=== PATIENT | female | born 1935 | race Caucasian/White ===

== ENCOUNTER 2018-11-08 10:52 | Inpatient (IN) ==
--- NOTE | 2018-11-08 11:28 | PROVIDER DOCUMENTATION ---
This chart was entered by Yuni Hutchinson Scribe, acting as scribe for Dayron Kumar CRNP. HPI-Respiratory General - General Chief Complaint: Shortness of Breath Stated Complaint: SOB,HIGH BP Time Seen by Provider: 11/08/18 11:05 Source: patient Allergies/Adverse Reactions: Patient Allergies Allergy/AdvReac Type Severity Reaction Status Date / Time lincomycin [From Lincocin] Allergy DIARRHEA Verified 11/08/18 11:22 Penicillins Allergy HIVES Verified 11/08/18 11:22 Sulfa (Sulfonamide Allergy DIARRHEA Verified 11/08/18 11:22 Antibiotics) - History of Present Illness-Resp Nature of Presenting Problem: 83 y/o female presents to ED with SOB onset suddenly this morning. Pt reports she has a pacemaker and has had multiple heart surgeries. Pt is alert and oriented. Quality of Pain: reports: none Severity in ED: reports: moderate Onset/Duration: reports: abrupt, this morning Timing: reports: still present Context: reports: other Exposure: reports: unknown cause Cough Quality/Degree: reports: no cough Episode Frequency: no prior episodes Current Respiratory Medication Therapy: Initiated see nurses note Modifying Factors: improves with: nothing Associated Symptoms: reports: shortness of breath, short of breath Similar Symptoms Previously?: No Recently seen or treated by another doctor?: No Review of Systems - Adult - REVIEW OF SYSTEMS - ADULT Constitutional: denies: chills, fever Eyes: reports: no symptoms reported Ears, Nose, Mouth & Throat: reports: no symptoms reported Cardiovascular: denies: chest pain, palpitations Respiratory: reports: shortness of breath. denies: cough Gastrointestinal: denies: abdominal pain, diarrhea, nausea, vomiting Genitourinary: reports: no symptoms reported Musculoskeletal: denies: back pain, joint pain Integumentary: reports: no symptoms reported Neurological: denies: dizziness/vertigo, seizure Psychiatric: reports: no symptoms reported Endocrine: reports: no symptoms reported Hematologic/Lymphatic: reports: no symptoms reported Allergic/Immunologic: reports: no symptoms reported All Other Systems: Reviewed and Negative Past History - Adult - PAST MEDICAL HISTORY-ADULT Review of Records: reports: Old Records Reviewed, Nursing Assessment Review, Medications Reviewed Major Childhood Illnesses: reports: denies history Cardiovascular: reports: CAD, pacemaker - PRIOR SURGERIES/PROCEDURES Surgical/Procedure History: reports: pacemaker, other (multiple heart surgeries) - IMMUNIZATION STATUS Childhood Immunizations: See Nurse Assessment Flu Vaccine: See Nurse Assessment - FAMILY HISTORY Family History: reviewed, not pertinent - SOCIAL HISTORY Smoking: non-smoker Substance Use: none/never Alcohol Use Frequency: never Living Situation: family Physical Exam-General - PHYSICAL EXAM-ADULT Initial Vital Signs Reviewed: Yes - CONSTITUTIONAL General Appearance: appears well, alert, no apparent distress - EYES Eyes: PERRL/EOMI, pink conjunctivae - HEAD, EARS, NOSE, MOUTH & THROAT HENMT: normocephalic/atraumatic, moist mucous membranes, normal ENT inspection - NECK Neck: non-tender, full range of motion - RESPIRATORY Respiratory: chest non-tender, lungs clear, normal breath sounds - CARDIOVASCULAR Cardiovascular: normal peripheral pulses, regular rate, rhythm - GASTROINTESTINAL (ABDOMEN) Abdominal Exam: normal bowel sounds, non tender, soft - MUSCULOSKELETAL Back Exam: normal inspection, no CVA tenderness Extremity: normal range of motion, non-tender, normal gait, swelling (mild edema of bilateral lower extremities) - SKIN Integumentary: normal color, warm/dry - NEUROLOGIC Neurologic: grossly normal - PSYCHIATRIC Psych/Mental Status: normal mood/affect, normal thought content, normal thought process - HEART Score HEART Score: History: Slightly Suspicious HEART Score: ECG: Normal HEART Score: Age: > or = 65 Years HEART Score: Risk Factors for Atherosclerotic Disease: 1 or 2 Risk Factors HEART Score: Troponin: < or = Normal Limit Total HEART Score:: 3 Progress - PLAN OF CARE/RESULTS Progress/Plan/Lab Results: Vital Signs - 8 hr 11/08/18 10:58 Temperature 97.7 F Pulse Rate 72 Respiratory Rate 16 Blood Pressure 185/77 O2 Sat by Pulse Oximetry 96 Laboratory Results - last 24 hr 11/08/18 11/08/18 11/08/18 11:29 11:29 11:29 WBC 6.84 RBC 4.13 L Hgb 13.2 Hct 40.4 MCV 97.8 MCH 32.0 H MCHC 32.7 L RDW Std Deviation 13.5 Plt Count 277 MPV 10.0 Immature Gran % (Auto) 0.0 Neut % (Auto) 53.9 Lymph % (Auto) 33.9 Schuyler % (Auto) 8.0 Eos % (Auto) 3.5 Baso % (Auto) 0.7 Immature Gran # (Auto) 0.00 Neut # (Auto) 3.68 Lymph # (Auto) 2.32 [place]uyler # (Auto) 0.55 Eos # (Auto) 0.24 Baso # (Auto) 0.05 PT INR PTT (Actin FS) Sodium 144 Potassium 3.9 Chloride 102 Carbon Dioxide 28 Anion Gap 14 BUN 10 Creatinine 0.9 Estimated GFR/1.73 m2 60 BUN/Creatinine Ratio 11 Glucose 114 H Calculated Osmolality 287 Calcium 9.2 Total Bilirubin 0.82 AST 64 H ALT 25 Alkaline Phosphatase 149 H Creatine Kinase 43 Troponin T [id number] Pept 4405 H Total Protein 6.4 Albumin 3.6 Globulin 2.8 Albumin/Globulin Ratio 1.3 Urine Source Urine Color Urine Turbidity Urine pH Ur Specific [place] Urine Protein Ur Glucose (Stick) Ur Ketones (Stick) Urine Blood Urine Nitrite Urine Bilirubin Urobilinogen Dipstick Urine Leukocytes Urine WBC (Auto) Urine RBC (Auto) U Epithel Cells (Auto) Urine Bacteria (Auto) 11/08/18 11/08/18 11/08/18 11:29 11:29 12:00 WBC RBC Hgb Hct MCV MCH MCHC RDW Std Deviation Plt Count MPV Immature Gran % (Auto) Neut % (Auto) Lymph % (Auto) [place] % (Auto) Eos % (Auto) Baso % (Auto) Immature Gran # (Auto) Neut # (Auto) Lymph # (Auto) [place] # (Auto) Eos # (Auto) Baso # (Auto) PT 22.3 H INR 1.81 PTT (Actin FS) 35.5 Sodium Potassium Chloride Carbon Dioxide Anion Gap BUN Creatinine Estimated GFR/1.73 m2 BUN/Creatinine Ratio Glucose Calculated Osmolality Calcium Total Bilirubin AST ALT Alkaline Phosphatase Creatine Kinase Troponin T < 0.010 Hyo-E-Ajgsxutqsmh Pept Total Protein Albumin Globulin Albumin/Globulin Ratio Urine Source CLEAN CATCH Urine Color YELLOW Urine Turbidity CLEAR Urine pH 7.0 Ur Specific [place] 1.010 Urine Protein TRACE A Ur Glucose (Stick) NEGATIVE Ur Ketones (Stick) NEGATIVE Urine Blood NEGATIVE Urine Nitrite NEGATIVE Urine Bilirubin NEGATIVE Urobilinogen Dipstick NORMAL Urine Leukocytes NEGATIVE Urine WBC (Auto) <10 Urine RBC (Auto) <10 U Epithel Cells (Auto) <10 Urine Bacteria (Auto) NEGATIVE Orders Category Date Time Status Oxygen Therapy- ED Nursing DIRECTED Care 11/08/18 11:15 Active Saline Loc NOW Care 11/08/18 11:13 Active CHEST-PORTABLE [RAD] Stat Exams 11/08/18 11:14 Completed CBC WITH ELECTRONIC DIFF [HEME] Stat Lab 11/08/18 11:29 Completed CK PROFILE [SP CHEM] Stat Lab 11/08/18 11:29 Completed COMPREHENSIVE METABOLIC PANEL [CHEM] Stat Lab 11/08/18 11:29 Completed PRO B-NATRIURETIC PEPTIDE Stat Lab 11/08/18 11:29 Completed PROTIME WITH INR [COAG] Stat Lab 11/08/18 11:29 Completed PTT [COAG] Stat Lab 11/08/18 11:29 Completed TROPONIN T Stat Lab 11/08/18 11:29 Completed URINALYSIS W/POSS RFLX CULT [URINALYSIS] Stat Lab 11/08/18 12:00 Completed Furosemide [Lasix] Med 11/08/18 11:57 Discontinued 20 mg IV NOW ONE Result Diagrams: 11/08/18 11:29 11/08/18 11:29 - EKG 1 Time of EKG reading by physician:: 10:58 EKG Read and Signed by:: Niraj Enrique EKG Interpretation (*Must complete 3 of following elements*): Abnormal Rate: 64 Rhythm: Ventricular-paced [place]: normal QRS: normal [place] Interval: normal ST Wave: normal - XRAY 1 XRAY Study: Chest ([facility] [address], [address], [place] [address] Department of Imaging Patient: JACQUIE EGAN Date: 11/08/18#: [id number] : 1935DM Status: REG [facility]#: [id number] Age/Sex: 83/FRoom/Bed: Loc: ED Ordering Physician: Dayron Kumar Family Physician: Taiwo Henderson MD Reason for Procedure: SOB Signed EXAM: CHEST- PORTABLE INDICATION: SOB TECHNIQUE: One view COMPARISON: None. FINDINGS: There is pulmonary venous congestion and pulmonary edema bilaterally with a central and basilar predominance. There is suggestion of at least a small left effusion. There is adjacent atelectasis and/or infiltrate at the left lung base. The heart is enlarged. Median sternotomy wires and what appears to be a prosthetic heart valve are noted. A left-sided pacemaker is noted. IMPRESSION: Cardiomegaly with pulmonary edema and a left effusion as described. Electronically signed by Mati Ware 11/08/2018 11:42 AM 11/08/18 1142 Interpreting Physician: Mati Ware MD Dictated Date/Time: 11/08/18 1140 cc: Dayron Kumar; Taiwo Henderson MD) XRAY Interpretation: See note - CONSULTS/PCP/HOSPITALIST Notification #1 *Consult/PCP/Hospitalist*: Dr. Henderson Time Discussed: 12:30 Reason/Comments: Admit Consult Disposition: other (Doesn't think she is his patient but he will call back in a few minutes.) #2 Consult: michelle Ladd Time Discussed: 12:53 Reason/Comments: Admission Consult Disposition: Admit Departure - Departure Date of Disposition Decision: 11/08/18 Time of Disposition Decision: 12:31 DIAGNOSIS: Shortness of breath Pulmonary edema Qualifiers: Chronicity: acute Qualified Code(s): J81.0 - Acute pulmonary edema CHF (congestive heart failure) Qualifiers: Heart failure type: unspecified Heart failure chronicity: unspecified Qualified Code(s): I50.9 - Heart failure, unspecified Disposition: ADMITTED INPATIENT 09 Certified Medical Emergency: Emergent Condition: Stable Referrals and Follow-Ups: None,PCP [NON-STAFF PROVIDER] - - Critical Care Note This patient required my direct & personal management of CC.: No Attestation - Physician/ LO Attestation Patient care was provided by Advanced Practice Provider:: Yes Advanced Practice Provider:: Dayron Kumar Advanced Practice Provider documentation review:: The Mid-level provider documentation, treatment plan and medical decision making was reviewed by the physician who agrees with all treatment and medical decision making by the P. The physician spent face to face time with patient:: No Advanced Practice Provider documentation review:: Supervising physician onsite and consulted in the evaluation and care of this patient. The physician did not have a face to face encounter with the patient. This chart was documented by the indicated scribe, (Yuni Hutchinson, [place]) and accurately reflects the services I performed and decisions made by me, Dayron Kumar CRNP, as attested by the provider's signature.
--- NOTE | 2018-11-08 11:45 | Diag Imaging Result Doc PS360 ---
EXAM: CHEST-PORTABLE INDICATION: SOB TECHNIQUE: One view COMPARISON: None. FINDINGS: There is pulmonary venous congestion and pulmonary edema bilaterally with a central and basilar predominance. There is suggestion of at least a small left effusion. There is adjacent atelectasis and/or infiltrate at the left lung base. The heart is enlarged. Median sternotomy wires and what appears to be a prosthetic heart valve are noted. A left-sided pacemaker is noted. IMPRESSION: Cardiomegaly with pulmonary edema and a left effusion as described. Electronically signed by Mati Ware 11/08/2018 11:42 AM
[2018-11-08 11:53] LABS: BASO# 0.05 X1000 (0.0-0.2); BASO% 0.7 % (0.0-0.8); EOS# 0.24 X1000 (0.0-0.7); EOS% 3.5 % (0.0-10.0); HEMATOCRIT 40.4 % (37.0-47.0); HEMOGLOBIN 13.2 g/dL (12.0-16.0); LYMPH# 2.32 X1000 (1.2-3.4); LYMPH% 33.9 % (20.5-51.1); MCHC 32.7 g/dL (33-37); MCV 97.8 FL (81-99); MONO# 0.55 X1000 (0.11-0.59); NEUT# 3.68 X1000 (1.4-6.5); NEUT% 53.9 % (42.2-75.2); PLT 277 X1000 (130-400); RBC 4.13 XMIL (4.2-5.4); RDW 13.5 % (11.5-14.5); WBC 6.84 X1000 (4.8-10.8)
[2018-11-08 11:57] LABS: INR 1.81; PROTIME 22.3 Seconds (11.0-16.0)
[2018-11-08] MEDS ORDERED: LASIX IV ONE (11:57)
[2018-11-08 11:58] LABS: PTT 35.5 Seconds (22.3-41.8)
[2018-11-08 12:00] LABS: ALB/GLOB RATIO 1.3; ALBUMIN 3.6 g/dL (3.5-5.0); CALCIUM 9.2 mg/dL (8.8-10.2); CREATININE 0.9 mg/dL (0.5-0.9); POTASSIUM 3.9 mmol/L (3.5-5.1); TOTAL BILIRUBIN 0.82 mg/dL (0.20-1.00); TOTAL PROTEIN 6.4 g/dL (6.3-8.3)
[2018-11-08 12:05] LABS: URINE SOURCE CLEAN CATCH
[2018-11-08 12:09] LABS: BILIRUBIN URINE NEGATIVE (NEGATIVE); BLOOD URINE NEGATIVE (NEGATIVE); COLOR YELLOW; GLUCOSE URINE NEGATIVE (NEGATIVE); KETONE URINE NEGATIVE (NEGATIVE); LEUKOCYTES URINE NEGATIVE (NEGATIVE); NITRITE URINE NEGATIVE (NEGATIVE); PROTEIN URINE TRACE mg/dL (NEGATIVE); TURBIDITY URINE CLEAR (CLEAR); UROBILINOGEN URINE NORMAL (NORMAL)
[2018-11-08 12:11] LABS: UR EPITHELIAL CELLS <10 /HPF (<10); URINE BACTERIA NEGATIVE /HPF; URINE RBC <10 /HPF (<10); URINE WBC <10 /HPF (<10)
--- NOTE | 2018-11-08 13:52 | HISTORY AND PHYSICAL ---
PRIMARY CARE PHYSICIAN: None. Just recently moved here from [place]. CHIEF COMPLAINT: Shortness of breath and dizziness that began this a.m. HISTORY OF PRESENTING ILLNESS: This is an 83-year-old thin, frail 98 pound female who presents to [facility] with a sudden onset of shortness of breath this morning with dizziness that progressively worsened. Has a history of congestive heart failure, hypertension, atrial fibrillation and GERD. Workup in the emergency room showed a chest x-ray with cardiomegaly with pulmonary edema and a left effusion. She had a proBNP of 4405. We do not have any other labs to compare to as she is new to this area. She was given a 1 time dose of Lasix 20 mg IV x1 in the emergency room and so we will admit her for further evaluation and treatment. PAST MEDICAL HISTORY: CHF, hypertension, atrial fibrillation and GERD. PAST SURGICAL HISTORY: Of a pacemaker, multiple heart surgeries, cholecystectomy and appendectomy. FAMILY HISTORY: Reviewed and noncontributory. SOCIAL HISTORY: She currently lives with family. Denies any tobacco, alcohol or illicit drug use. ALLERGIES: To lincomycin, penicillin and sulfa. HOME MEDICATIONS: A current list will need to be obtained, reviewed, reconciled and restarted as appropriate. We will place an order for nursing to update and confirm home medications. LABORATORY DATA: Showed a white blood cell count of 6.84, hemoglobin 13.2, hematocrit 40.4, platelets 277,000. PT and INR of 22.3 and 1.81. Sodium 144, potassium 3.9, chloride 102, CO2 28, BUN of 10, creatinine 0.9, glucose 114, creatine kinase of 43. Troponin less than 0.010 with a proBNP of 4405. Urinalysis was negative. Chest x-ray showed cardiomegaly with pulmonary edema and a left effusion as described. REVIEW OF SYSTEMS: She denied any fever, chills, blurred vision. She did have some dizziness, shortness of breath. Denied any chest pain or cough. Denied any abdominal pain, constipation, diarrhea, burning or hurting with urination. PHYSICAL EXAMINATION: On arrival she had a temperature of 97.7 degrees, a pulse of 72, respirations 16, blood pressure 185/77, saturating 96% on room air. GENERAL: This is a 83-year-old female who is lying in the bed and answers questions appropriately. HEENT: Normocephalic, atraumatic. Normal ENT inspection. Oropharynx and nares are clear. Pupils are equal, round, reactive to light and accommodation. Extraocular movements are intact. NECK: Normal inspection, normal range of motion. LUNGS: Clear to auscultation bilaterally with equal lung expansion and chest wall movement. HEART: With regular rate and rhythm. No murmurs, rubs, or gallops. She did have some mild edema to her bilateral lower extremities but it was nonpitting. ABDOMEN: Soft, nontender, nondistended. Bowel sounds are present x4 quadrants. MUSCULOSKELETAL: She has 5/5 strength x4 extremities. Her HEART score is noted to be 3. NEUROLOGICAL: The cranial nerves 2-12 appear grossly intact. ASSESSMENT: 1. An acute congestive heart failure exacerbation. 2. Hypertension history of. 3. History of atrial fibrillation. 4. Gastroesophageal reflux disease. PLAN: She will be admitted to the medical unit, placed on telemetry, O2 per protocol. We will check an echocardiogram. Place her on a healthy heart diet. SCD for DVT prophylaxis. Will do some gentle diuresis as she is thin and frail at 98 pounds so do Lasix 20 mg IV b.i.d., give her Tylenol 650 p.o. q.6 hours p.r.n. and Zofran 4 mg IV q.4 hours p.r.n. and recheck a CBC, BMP in the a.m. Further orders after seen by attending and we still need to update and confirm home medications. Dictated by JORGE Pereyra for Bill Mc MD cc: JORGE Pereyra MD Patient presenting with dyspnea. Cxr shows pulmonary edema. Probnp level is elevated. Patient will be managed as a case of Acute CHF. Dr. Mc. REA
[2018-11-08] MEDS ORDERED: TYLENOL PO PRN (14:50)
[2018-11-08] MEDS ORDERED: ZOFRAN IV PRN (14:50)
[2018-11-08] MEDS: PATIENT'S OWN MED PO SCH (20:22)
[2018-11-08] MEDS: LASIX IV SCH (20:22)
[2018-11-08] MEDS ORDERED: ZANTAC PO SCH (21:00)
[2018-11-08] MEDS ORDERED: REMERON PO SCH (21:00)
[2018-11-08] MEDS ORDERED: COUMADIN PO SCH (21:00)
[2018-11-09 07:31] LABS: BASO# 0.02 X1000 (0.0-0.2); BASO% 0.4 % (0.0-0.8); EOS# 0.22 X1000 (0.0-0.7); EOS% 4.7 % (0.0-10.0); HEMATOCRIT 35.9 % (37.0-47.0); HEMOGLOBIN 11.7 g/dL (12.0-16.0); LYMPH# 1.21 X1000 (1.2-3.4); LYMPH% 25.8 % (20.5-51.1); MCHC 32.6 g/dL (33-37); MCV 98.1 FL (81-99); MONO# 0.44 X1000 (0.11-0.59); MONO% 9.4 % (1.7-9.3); NEUT% 59.7 % (42.2-75.2); PLT 240 X1000 (130-400); RBC 3.66 XMIL (4.2-5.4); RDW 13.5 % (11.5-14.5); WBC 4.69 X1000 (4.8-10.8)
[2018-11-09 08:04] LABS: CALCIUM 8.4 mg/dL (8.8-10.2); CREATININE 0.9 mg/dL (0.5-0.9); POTASSIUM 3.1 mmol/L (3.5-5.1)
[2018-11-09] MEDS: ANTIVERT PO SCH ×3 (08:53→17:41)
[2018-11-09] MEDS: LASIX IV SCH ×2 (08:53→21:53)
[2018-11-09] MEDS ORDERED: POTASSIUM CHLORIDE 20 MEQ/SWI 20 MEQ/100 ML IVPB IV SCH (12:32)
--- NOTE | 2018-11-09 12:53 | PROGRESS NOTE ---
DATE: 11/09/2018 SUBJECTIVE: The patient is awake and resting comfortably. Not in any obvious distress. OBJECTIVE: Vital signs: Temperature 98.1 degrees, pulse of 67, respiratory rate 16, blood pressure 125/59, oxygen saturation 100%. HEENT: Atraumatic, normocephalic. Cardiovascular: S1, S2. Respiratory system: Has evidence of good air entry bilaterally. Abdomen: Soft, nontender. No masses felt. Extremities: No evidence of significant edema in the lower extremities. Central nervous system: No obvious focal deficits noted. LABORATORY DATA: WBC is 4.6, hematocrit is 35.9, with a platelet count of 240,000. Sodium is 144, potassium 3.1, chloride is 102, bicarb 25, creatinine 0.9. ASSESSMENT AND PLAN: 1. Acute congestive heart failure (diastolic versus systolic). Continue diuretics. Monitor intakes and outputs, as well as daily weights. Follow up on 2D echo of the heart. 2. History of atrial fibrillation. Heart rate is currently controlled. Continue anticoagulation. 3. Gastroesophageal reflux disease. Continue ranitidine. 4. Hypertension, stable. 5. Deep vein thrombosis prophylaxis. The patient is on warfarin. cc: Bill Mc MD MTDD
[2018-11-09] MEDS ORDERED: KLOR-CON PO ONE (13:59)
--- NOTE | 2018-11-09 16:36 | ECHO REPORT ---
ORDER DATE: 11/09/2018 2D echocardiogram ECHOCARDIOGRAPHIC MEASUREMENTS: 1. Interventricular septum 0.9. 2. Left ventricular posterior wall 0.9. 3. Diastolic diameter 4.9. 4. Left atrium 4.4. 5. Aorta 3.5. SUMMARY: 1. Aortic valve leaflets are trileaflet. 2. Pulmonic valve was normal. 3. Pacing leads were noted in the right chamber. 4. Normal left ventricular cavity size. 5. Estimated ejection fraction of 40 to 45 percent. 6. Mechanical prosthetic valve in the mitral position was stable. 7. Mitral valve area by pressure half time was 4 square cm. 1. Peak inflow velocity across the mitral valve was 1.3 m/sec with a mean gradient of 2 mmHg there was associated with mild mitral regurgitation. 2. The prosthetic valve was functioning appropriately. 3. There is moderate tricuspid regurgitation. 4. Peak velocity across the tricuspid valve was 3.3 m/sec. 5. Pulmonary artery systolic pressure of 55 mmHg. 6. There is no aortic stenosis. 7. There is trivial aortic regurgitation. 8. There is no pericardial effusion or obvious intracardiac mass or thrombus seen. cc: MD Evon Harding CRNP
[2018-11-09] MEDS ORDERED: COUMADIN PO SCH (17:00)
[2018-11-09] MEDS: REMERON PO SCH (17:41)
[2018-11-09] MEDS: ZANTAC PO SCH (17:41)
[2018-11-09 20:57] LABS: INR 1.88
[2018-11-09] MEDS: PATIENT'S OWN MED PO SCH (21:53)
[2018-11-10 07:17] LABS: BASO# 0.04 X1000 (0.0-0.2); BASO% 0.9 % (0.0-0.8); EOS# 0.37 X1000 (0.0-0.7); EOS% 7.9 % (0.0-10.0); HEMATOCRIT 36.5 % (37.0-47.0); HEMOGLOBIN 11.7 g/dL (12.0-16.0); LYMPH# 1.39 X1000 (1.2-3.4); LYMPH% 29.6 % (20.5-51.1); MCH 31.8 PG (27-31); MCHC 32.1 g/dL (33-37); MCV 99.2 FL (81-99); MONO# 0.53 X1000 (0.11-0.59); MONO% 11.3 % (1.7-9.3); MPV 10.2 FL (7.4-10.4); NEUT# 2.36 X1000 (1.4-6.5); NEUT% 50.3 % (42.2-75.2); PLT 237 X1000 (130-400); RBC 3.68 XMIL (4.2-5.4); RDW 13.4 % (11.5-14.5); WBC 4.69 X1000 (4.8-10.8)
[2018-11-10 07:36] LABS: CALCIUM 8.5 mg/dL (8.8-10.2); CREATININE 0.9 mg/dL (0.5-0.9); POTASSIUM 3.3 mmol/L (3.5-5.1)
[2018-11-10] MEDS: ANTIVERT PO SCH ×3 (09:11→16:23)
[2018-11-10] MEDS: LASIX IV SCH ×2 (09:11→20:37)
[2018-11-10] MEDS ORDERED: HEPARIN 25,000 UNITS/D5W 25,000 UNIT/250 ML IV.SOLN IV SCH ×2 (11:45→23:26)
--- NOTE | 2018-11-10 12:12 | PROGRESS NOTE ---
DATE: 11/10/2018 SUBJECTIVE: This morning Ms. Garcia referred to be feeling a whole lot better. She was sitting up in the chair with no complaints. Ms. Garcia refers that her shortness of breath has significantly improved. OBJECTIVE: Vital Signs: Blood pressure 111/51, pulse 74, respirations 16, and temperature 98 degrees. General: Ms. Garcia is an 83-year-old female. She was sitting up in the chair. She was not in any distress. HEENT: Mucosa is pink and moist. Anicteric. Acyanotic. Neck: Supple. Chest: She has good air entry bilateral, just some faint crackles in the posterior lung [place]. Cardiovascular: Regular rate and rhythm. There is positive metallic click of the mitral valve. Abdomen: Soft. Extremities: No pedal edema. [place] LEAD: Patient is awake, alert, and oriented. LABORATORY DATA: On the chest exam, there is an old sternotomy scar on the anterior chest wall. There is also a pacemaker generator on the left anterior chest wall. Chemistry is reviewed, and is unremarkable. Potassium is 3.2. The patient I's and O's, the urine output 800 was charted overnight. The echocardiogram did show an ejection fraction of 40 to 45 percent. Prosthetic valve was functioning appropriately. ASSESSMENT: 1. Congestive heart failure in acute exacerbation. Patient is currently on diuretic therapy. Echocardiogram shows ejection fraction of 40 to 45 percent. 2. History of atrial fibrillation. Currently rate controlled. 3. Status post mitral mechanical valve. Patient is on Coumadin. INR is extremely subtherapeutic so I have started the patient on heparin drip. We will give her 10 mg of Coumadin today. We will also consult cardiology. 4. Hypertension is controlled. 5. Status post pacemaker. PLAN: 1. In general, Ms. Garcia seems to be getting better. Congestive symptoms are improved. She is extremely subtherapeutic on her INR so we are going to bridge it with heparin and give her a higher dose of Coumadin today. Cardiology has been consulted. We will follow up with further recommendations from them. 2. Disposition is going to depend on the rest of the hospital course. 3. I presume in the next 24 to 48 hours, we can have Ms. Garcia discharged. cc: Gutierrez Adler MD
--- NOTE | 2018-11-10 15:12 | CARDIOLOGY CONSULTATION ---
DATE: 11/10/2018 HISTORY OF PRESENT ILLNESS: Ms. Dhara Christiansen is a 98 pound, 83-year-old, frail lady who has a [employer] mechanical mitral valve replacement in the past. Has a single chamber pacemaker, Medtronic device, is on Coumadin. Comes with complaints of having increasing shortness of breath with minimal exertion. Came to the emergency room. Was noted to have cardiomegaly with pulmonary edema and left effusion. Started on IV Lasix. She has a proBNP of 4405. She was noted to have a low sodium and was advised to increase salt intake so she admits to having increasing salt intake recently as well. She was recently seen by Dr. Marie in our office in [place]. At that time, she had been doing well. She does not complain of chest pain suggestive of angina. There are no palpitations. There is no syncope. REVIEW OF SYSTEMS: A 14-point review of systems was done. GI System: There is no history of nausea, vomiting, or diarrhea. There is no history of hematemesis or melena. Central Nervous System: No focal weakness to suggest a CVA or TIA. Genitourinary System: There is no dysuria or hematuria. PAST MEDICAL HISTORY: 1. 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 2. LV dysfunction. 3. Permanent pacemaker, Medtronic device implanted, single chamber. 4. Coumadin therapy. 5. Hypothyroidism. 6. Hypertension. 7. 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 8. In the past, had hyponatremia. HOME MEDICATIONS: 1. Aspirin 81 mg a day. 2. Metoprolol 25. 3. Lorazepam. PHYSICAL EXAMINATION: Vital Signs: Blood pressure was 180/77 when she came in. Today, blood pressure is 145/51. First and second heart sounds heard. Mechanical prosthetic sounds heard. Respiratory System: Bibasilar inspiratory crepitations. Abdomen: Soft, nontender. There was no guarding or rigidity. Bowel sounds were heard. Central Nervous System: Alert and was moving all 4 extremities. Examination of her extremities revealed mild edema. HEENT: Atraumatic, normocephalic. Pupils were equal and reacting to light. LABORATORY EXAMINATION: Reveals sodium 145, potassium 3.3, BUN 9, creatinine 0.9. ProBNP elevated at 4405. Troponin negative. Hemoglobin 11.7, hematocrit 36, platelet count 237,000. INR of 1.8. ASSESSMENT AND PLAN: 1. Ms. Dhraa Garcia is an 83-year-old lady who is frail, status post mechanical mitral valve replacement in the past, left ventricular dysfunction, hypothyroidism. 2. History of atrial fibrillation. Is admitted with increasing shortness of breath. Has congestive heart failure. Ejection fraction 40-45%, systolic heart failure. She does admit to having increasing salt intake. Regardless, would recommend continuing with the Lasix intravenously 20 mg twice daily as planned. She was on beta-blockers before. We will add Toprol-XL 25 mg twice daily to her medical regimen. 3. Given her left ventricular dysfunction, we will add Cozaar 25 mg daily. As far as her INR is concerned, it was subtherapeutic. We will give Coumadin 10 today and put her back on Coumadin 2 mg a day. 4. As far as her pacemaker is concerned, she has a [employer]tr[employer] device. She has atrial fibrillation, functioning appropriately. Given her left ventricular dysfunction, she will be followed up in our pacemaker clinic as an outpatient in [place] and she may benefit from an upgrade of her pacemaker as well. This will be done as an outpatient. 5. She has history of hypothyroidism. We will check TSH levels and treat accordingly. Thank you for the consult. We will follow hospital course. cc: Jean Marie Martin MD
[2018-11-10] MEDS: COZAAR PO SCH ×2 (16:25→16:30)
[2018-11-10] MEDS: ZANTAC PO SCH (18:50)
[2018-11-10] MEDS: REMERON PO SCH (18:51)
[2018-11-10] MEDS: PATIENT'S OWN MED PO SCH (20:36)
[2018-11-10] MEDS ORDERED: COUMADIN PO SCH ×2 (21:00)
[2018-11-11 05:52] LABS: BASO# 0.06 X1000 (0.0-0.2); BASO% 1.1 % (0.0-0.8); EOS# 0.31 X1000 (0.0-0.7); EOS% 5.7 % (0.0-10.0); HEMATOCRIT 39.5 % (37.0-47.0); HEMOGLOBIN 12.6 g/dL (12.0-16.0); LYMPH# 1.44 X1000 (1.2-3.4); LYMPH% 26.6 % (20.5-51.1); MCH 31.3 PG (27-31); MCHC 31.9 g/dL (33-37); MCV 98.3 FL (81-99); MONO# 0.57 X1000 (0.11-0.59); MONO% 10.5 % (1.7-9.3); MPV 9.9 FL (7.4-10.4); NEUT# 3.04 X1000 (1.4-6.5); NEUT% 56.1 % (42.2-75.2); PLT 262 X1000 (130-400); RBC 4.02 XMIL (4.2-5.4); RDW 13.2 % (11.5-14.5); WBC 5.42 X1000 (4.8-10.8)
[2018-11-11 06:10] LABS: INR 2.05; PROTIME 24.7 Seconds (11.0-16.0)
[2018-11-11 06:24] LABS: CALCIUM 9.4 mg/dL (8.8-10.2); MAGNESIUM 1.8 mg/dL (1.5-2.7); POTASSIUM 3.2 mmol/L (3.5-5.1)
[2018-11-11 06:43] LABS: FERRITIN 264 ng/mL (13-150)
--- NOTE | 2018-11-11 08:11 | Diag Imaging Result Doc PS360 ---
EXAM: CHEST-2 VIEWS INDICATION: chf TECHNIQUE: 2 views COMPARISON: 11/08/2018 FINDINGS: There has been significant improvement of pulmonary venous congestion and interstitial edema to near resolution since the previous study. The small left effusion and adjacent atelectasis and/or infiltrate has grossly resolved. No new consolidation is appreciated. Cardiac silhouette is stable. IMPRESSION: Interval significant improvement. Electronically signed by Mati Ware 11/11/2018 8:09 AM
[2018-11-11] MEDS: LASIX IV SCH (08:18)
[2018-11-11] MEDS: COZAAR PO SCH (08:18)
[2018-11-11] MEDS: ANTIVERT PO SCH ×2 (08:18→14:03)
[2018-11-11] MEDS ORDERED: FOLIC ACID PO SCH (09:00)
[2018-11-11] MEDS ORDERED: TOPROL XL PO SCH (09:00)
[2018-11-11 11:41] VITALS: BP 130/55
[2018-11-11] MEDS ORDERED: COUMADIN PO SCH (21:00)
--- NOTE | 2018-11-11 22:28 | DISCHARGE SUMMARY ---
ADMISSION DATE: 11/08/2018 DISCHARGE DATE: 11/11/2018 DISPOSITION: Home. FOLLOWUP: Will be with: 1. Patient's PCP, Dr. Henderson. 2. Dr. Martin. CONSULTATION DURING THIS ADMISSION: Cardiology was consulted. Patient was seen by Dr. Martin. INVASIVE PROCEDURES DONE DURING THIS ADMISSION: None. IMAGING STUDIES: Significant for: 1. A chest x-ray was done on admission which showed cardiomegaly with pulmonary edema and left pleural effusion. 2. A repeat chest x-ray shows interval significant improvement. 3. An echocardiogram did show an ejection fraction of about 40% to 45%. The prosthetic valve was functioning appropriately ADMISSION DIAGNOSES: 1. Acute congestive heart failure. 2. History of congestive heart failure. 3. Atrial fibrillation. 4. Gastrointestinal reflux disease. DIAGNOSES AT THE TIME OF DISCHARGE: 1. Congestive systolic heart failure in acute exacerbation. 2. History of atrial fibrillation currently rate controlled. 3. Status post mitral mechanical valve. 4. Hypertension. 5. Status post pacemaker. 6. Coumadin anticoagulation. 7. Folate deficiency. 8. Abnormal TSH. Patient needs to repeat this test together with free T4. DISCHARGE MEDICATIONS: 1. Coumadin 2 mg p.o. daily. 2. Meclizine. 3. Mirtazapine 50 mg p.o. at bedtime. 4. Ranitidine 150 p.o. at bedtime. 5. Furosemide 20 mg daily. 6. Melatonin 1 tablet p.o. at bedtime. 7. Folic acid 1 mg daily. 8. Metoprolol 25 mg p.o. daily. 9. Losartan 25 mg p.o. daily. 10. Potassium chloride 20 mg p.o. daily. PRESENTING COMPLAINT: Shortness of breath and dizziness. HISTORY OF PRESENTING COMPLAINT: Ms. Garcia is an 83-year-old female who is known to have congestive heart failure, atrial fibrillation, status post pacemaker and also mitral valve disease status post mechanical valve replacement in the mitral valve. She is on chronic Coumadin therapy. She came to the emergency department because of shortness of breath. The patient was evaluated and was found to be in congestive heart failure. She was subsequently admitted to the medical floor for therapy. HOSPITAL COURSE: Ms. Garcia was admitted to the medical floor under telemonitoring. She was started on IV diuretic therapy. Echocardiogram was done, which showed an ejection fraction of about 40% to 45%, and the prosthetic valve was in the right place and was functioning appropriately. The patient was also seen by Cardiology, and some changes were done to her medications. Throughout the hospital course, she continued to improve. Because she was very subtherapeutic in the INR, she was started on heparin drip and was given 10 mg of Coumadin yesterday. Her INR this morning has gone up to 2.05. We anticipate that it is going to be therapeutic between tomorrow and the day after when the 10 mg of last night will have maximum therapeutic effect. We think Ms. Garcia is therefore stable for discharge. She is completely asymptomatic. Congestive symptoms have significantly improved. She is therefore going to be discharged. She has been advised to take the normal dose of her Coumadin tonight and follow up with her primary care doctor and repeat her INR by Friday this week. All the discharge instructions have been discussed with her, and she voiced understanding. TIME SPENT FOR DISCHARGE: 35 minutes. cc: MD Taiwo Mcbride MD Ashish K. Basu, MD
[2018-11-14] MEDS ORDERED: COUMADIN PO SCH (17:00)
== END 2018-11-11 15:09 | disposition home health service (06) | DRG 292 ==
LOC: ED 10:52 → 3N 14:40 → SUATTDRO 14:40
PROVIDERS: ATTEND Internal Medicine
CPT/HCPCS: 71010; 71020; 71045; 71046; 80048; 80053; 81001; 82550; 82607; 82728; 82746; 83540; 83550; 83735; 83880; 84443; 84484; 85025; 85610; 85730; 93306; 96374; 99285; A9270; J1644; J1940; J3480

== ENCOUNTER 2019-02-28 13:59 | Observation (INO) ==
[2019-02-28] MEDS ORDERED: TYLENOL PO ONE (14:33)
--- NOTE | 2019-02-28 14:41 | PROVIDER DOCUMENTATION ---
HPI-Chest Pain - General Chief Complaint: Chest Pain Stated Complaint: CP,VOMITING Time Seen by Provider: 02/28/19 14:17 Source: patient, family Allergies/Adverse Reactions: Patient Allergies Allergy/AdvReac Type Severity Reaction Status Date / Time lincomycin [From Lincocin] Allergy DIARRHEA Verified 02/28/19 14:51 Penicillins Allergy HIVES Verified 02/28/19 14:51 Sulfa (Sulfonamide Allergy DIARRHEA Verified 02/28/19 14:51 Antibiotics) Home Medications: Home Medication List Medication Instructions Recorded Confirmed Last Taken Type Furosemide [Lasix] 20 mg PO PRN PRN 11/08/18 02/28/19 02/28/19 History Meclizine HCl 1 tab PO TID PRN 11/08/18 02/28/19 1 Day Ago History ~11/07/18 Melatonin/Pyridoxine [Melatonin 5 1 tab PO QHS 11/08/18 02/28/19 02/27/19 History mg Tablet] Mirtazapine [Remeron] 0.5 tab PO QHS 11/08/18 02/28/19 02/27/19 History Ranitidine HCl 1 tab PO QHS 11/08/18 02/28/19 02/28/19 History t-1 Warfarin [Coumadin] 2 mg PO DIRECTED 11/08/18 02/28/19 02/27/19 History - History of Present Illness-CP Nature of Presenting Problem: 83 YO F pmh for CAD s/p open heart surgery for valve replacement x 2 and pacer presents with episode of CP just prior to arrival that lasted <10 minutes and resolved on its own. It was substernal, radiated to left shoulder and jaw and associated with an episode of vomiting. Pt also endorses increasing LE swelling x 1 day. She is on lasix PRN. She denies fever, sick contacts, extremity numbness or weakness. Location: reports: substernal Chest Pain Radiation: reports: jaw, neck (left) Quality of Pain: reports: pressure, sharp Severity in ED: mild Onset/Duration: just prior to arrival, 1/2 hour ago Timing: gone now Context/Activities at Onset: reports: light activity Modifying Factors: improves with: nothing Associated Symptoms: reports: edema, vomiting. denies: dizziness, fatigue, shortness of breath, syncope, weakness Nitro Today/Relief: no nitro taken today Aspirin Treatment Today: no aspirin today Similar Symptoms Previously?: Yes Review of Systems - Adult - REVIEW OF SYSTEMS - ADULT Constitutional: denies: chills, fever Eyes: denies: blurred vision, double vision Ears, Nose, Mouth & Throat: reports: no symptoms reported Cardiovascular: reports: see HPI, chest pain Respiratory: denies: cough, dyspnea on exertion, shortness of breath Gastrointestinal: reports: vomiting. denies: abdominal pain, constipation, diarrhea, nausea Genitourinary: reports: no symptoms reported Musculoskeletal: reports: no symptoms reported Integumentary: reports: no symptoms reported Neurological: denies: dizziness/vertigo, loss of balance, numbness, seizure, syncope Psychiatric: reports: no symptoms reported Endocrine: reports: no symptoms reported Hematologic/Lymphatic: reports: no symptoms reported Allergic/Immunologic: reports: no symptoms reported Past History - Adult - PAST MEDICAL HISTORY-ADULT Review of Records: reports: Old Records Reviewed, Nursing Assessment Review, Medications Reviewed, Social history reviewed & non-contributory. Major Childhood Illnesses: reports: denies history Cardiovascular: reports: CAD, heart valve problem (mitral and tricuspid valve replacement), pacemaker Respiratory: reports: denies history Gastrointestinal: reports: GERD Genitourinary: reports: denies history Musculoskeletal: reports: denies history Neurological: denies: CVA, stroke deficits - PRIOR SURGERIES/PROCEDURES Surgical/Procedure History: reports: pacemaker, other (multiple heart surgeries) - IMMUNIZATION STATUS Childhood Immunizations: See Nurse Assessment Flu Vaccine: See Nurse Assessment - FAMILY HISTORY Family History: reviewed, not pertinent - SOCIAL HISTORY Smoking: denies Substance Use: denies Physical Exam-General - PHYSICAL EXAM-ADULT Initial Vital Signs Reviewed: Yes - CONSTITUTIONAL General Appearance: appears well, alert, no apparent distress, thin - EYES Eyes: PERRL/EOMI, pink conjunctivae - HEAD, EARS, NOSE, MOUTH & THROAT HENMT: normocephalic/atraumatic, moist mucous membranes - NECK Neck: non-tender, supple, normal inspection - RESPIRATORY Respiratory: chest non-tender, lungs clear, normal breath sounds, no respiratory distress, no accessory muscle use - GASTROINTESTINAL (ABDOMEN) Abdominal Exam: normal bowel sounds, non tender, soft, no pulsatile mass - MUSCULOSKELETAL Extremity: normal range of motion, pedal edema (3+ LE edema b/l), swelling - SKIN Integumentary: normal color, normal turgor, warm/dry - NEUROLOGIC Neurologic: grossly normal - PSYCHIATRIC Psych/Mental Status: normal mood/affect - HEART Score HEART Score: History: Highly Suspicious HEART Score: ECG: Non-Specific Repolarization Disturbance/LBBB/PM HEART Score: Age: > or = 65 Years HEART Score: Risk Factors for Atherosclerotic Disease: 1 or 2 Risk Factors HEART Score: Troponin: < or = Normal Limit Total HEART Score:: 6 Progress - PLAN OF CARE/RESULTS Progress/Plan/Lab Results: Vital Signs - 8 hr 02/28/19 14:02 Temperature 97.7 F Pulse Rate 68 Respiratory Rate 16 Blood Pressure 181/74 O2 Sat by Pulse Oximetry 97 Laboratory Results - last 24 hr 02/28/19 02/28/19 02/28/19 15:04 15:04 15:04 WBC 5.06 RBC 4.35 Hgb 13.8 Hct 40.4 MCV 92.9 MCH 31.7 H MCHC 34.2 RDW Std Deviation 13.8 Plt Count 263 MPV 10.2 Immature Gran % (Auto) 0.0 Neut % (Auto) 57.4 Lymph % (Auto) 28.7 [place] % (Auto) 10.3 H Eos % (Auto) 2.8 Baso % (Auto) 0.8 Immature Gran # (Auto) 0.00 Neut # (Auto) 2.91 Lymph # (Auto) 1.45 [place] # (Auto) 0.52 Eos # (Auto) 0.14 Baso # (Auto) 0.04 PT 34.0 H INR 3.23 PTT (Actin FS) 50.8 H Sodium Potassium Chloride Carbon Dioxide Anion Gap BUN Creatinine Estimated GFR/1.73 m2 BUN/Creatinine Ratio Glucose Calculated Osmolality Calcium Total Bilirubin AST ALT Alkaline Phosphatase Creatine Kinase Troponin T Grh-S-[place] Pept 6154 H Total Protein Albumin Globulin Albumin/Globulin Ratio TSH Urine Source Urine Color Urine Turbidity Urine pH Ur Specific [place] Urine Protein Ur Glucose (Stick) Ur Ketones (Stick) Urine Blood Urine Nitrite Urine Bilirubin Urobilinogen Dipstick Urine Leukocytes Urine WBC (Auto) Urine RBC (Auto) U Epithel Cells (Auto) Urine Bacteria (Auto) 02/28/19 02/28/19 02/28/19 15:04 15:04 15:04 WBC RBC Hgb Hct MCV MCH MCHC RDW Std Deviation Plt Count MPV Immature Gran % (Auto) Neut % (Auto) Lymph % (Auto) [place] % (Auto) Eos % (Auto) Baso % (Auto) Immature Gran # (Auto) Neut # (Auto) Lymph # (Auto) [place] # (Auto) Eos # (Auto) Baso # (Auto) PT INR PTT (Actin FS) Sodium 142 Potassium 3.6 Chloride 98 Carbon Dioxide 32 Anion Gap 12 BUN 8 Creatinine 1.1 H Estimated GFR/1.73 m2 47 BUN/Creatinine Ratio 7 Glucose 101 Calculated Osmolality 282 Calcium 10.1 Total Bilirubin 0.89 AST 25 ALT 9 L Alkaline Phosphatase 104 Creatine Kinase 90 Troponin T < 0.010 Mnm-K-Bawjwzqbhla Pept Total Protein 7.8 Albumin 4.7 Globulin 3.1 Albumin/Globulin Ratio 1.5 TSH 8.06 H Urine Source Urine Color Urine Turbidity Urine pH Ur Specific [place] Urine Protein Ur Glucose (Stick) Ur Ketones (Stick) Urine Blood Urine Nitrite Urine Bilirubin Urobilinogen Dipstick Urine Leukocytes Urine WBC (Auto) Urine RBC (Auto) U Epithel Cells (Auto) Urine Bacteria (Auto) 02/28/19 15:23 WBC RBC Hgb Hct MCV MCH MCHC RDW Std Deviation Plt Count MPV Immature Gran % (Auto) Neut % (Auto) Lymph % (Auto) [place] % (Auto) Eos % (Auto) Baso % (Auto) Immature Gran # (Auto) Neut # (Auto) Lymph # (Auto) [place] # (Auto) Eos # (Auto) Baso # (Auto) PT INR PTT (Actin FS) Sodium Potassium Chloride Carbon Dioxide Anion Gap BUN Creatinine Estimated GFR/1.73 m2 BUN/Creatinine Ratio Glucose Calculated Osmolality Calcium Total Bilirubin AST ALT Alkaline Phosphatase Creatine Kinase Troponin T Tqd-S-Ftbmsjjyyhq Pept Total Protein Albumin Globulin Albumin/Globulin Ratio TSH Urine Source CLEAN CATCH Urine Color STRAW Urine Turbidity CLEAR Urine pH 7.0 Ur Specific [place] 1.006 Urine Protein NEGATIVE Ur Glucose (Stick) NEGATIVE Ur Ketones (Stick) NEGATIVE Urine Blood NEGATIVE Urine Nitrite NEGATIVE Urine Bilirubin NEGATIVE Urobilinogen Dipstick NORMAL Urine Leukocytes NEGATIVE Urine WBC (Auto) <10 Urine RBC (Auto) <10 U Epithel Cells (Auto) <10 Urine Bacteria (Auto) 1+ Orders Category Date Time Status Cardiac Monitoring DIRECTED Care 02/28/19 14:21 Active Saline Loc NOW Care 02/28/19 14:20 Active cxr [CHEST-1 VIEW] [RAD] Stat Exams 02/28/19 14:21 Completed CBC WITH ELECTRONIC DIFF [HEME] Stat Lab 02/28/19 15:04 Completed CK PROFILE [SP CHEM] Stat Lab 02/28/19 15:04 Completed COMPREHENSIVE METABOLIC PANEL [CHEM] Stat Lab 02/28/19 15:04 Completed PRO B-NATRIURETIC PEPTIDE Stat Lab 02/28/19 15:04 Completed PROTIME WITH INR [COAG] Stat Lab 02/28/19 15:04 Completed PTT [COAG] Stat Lab 02/28/19 15:04 Completed TROPONIN T Stat Lab 02/28/19 15:04 Completed TSH Stat Lab 02/28/19 15:04 Completed UA [URINALYSIS W/POSS RFLX CULT] [URINALYSIS] Stat Lab 02/28/19 15:23 Completed Acetaminophen [Tylenol] Med 02/28/19 14:33 Discontinued 325 mg PO NOW ONE Aspirin Med 02/28/19 15:37 Discontinued 325 mg PO NOW ONE Furosemide [Lasix] Med 02/28/19 15:36 Discontinued 20 mg IV NOW ONE Potassium Chloride E.r. [Klor-Con] Med 02/28/19 16:25 Discontinued 40 meq PO NOW ONE EKG [EKG] Stat Ther 02/28/19 14:20 Ordered CXR showing pulm venous congestion. this coupled with worsening LE edema, will give dose of lasix. Labs reviewed. Elevated BNP. Will plan for admission for CHF exacerbation. Will replace potassium. Troponin negative. Result Diagrams: 02/28/19 15:04 02/28/19 15:04 - EKG 1 Time of EKG reading by physician:: 14:32 EKG Read and Signed by:: Ming Carmen EKG Interpretation (*Must complete 3 of following elements*): Abnormal Rate: 69 Rhythm: ventricular paced QRS: normal Prior EKG Comparison: unchanged from prior (October 2018) Comments: frequent PVCs, cannot determine P interval or ST changes - XRAY 1 XRAY Study: Chest Impression: Abnormal, See EMR Report (EXAM: CHEST-1 VIEW INDICATION: CP TECHNIQUE: One view COMPARISON: 11/11/2018 FINDINGS: The central vasculature is prominent suggesting pulmonary venous congestion. It is fairly similar to the previous study. The lungs are grossly clear, otherwise. There is no discrete pleural fluid collection or pneumothorax. There is stable cardiomegaly. The pacemaker is in stable position. IMPRESSION: Cardiomegaly and pulmonary venous congestion as described. Electronically signed by Mati Ware 02/28/2019 3:10 PM) - CONSULTS/PCP/HOSPITALIST Notification #1 *Consult/PCP/Hospitalist*: Dr. Parnell accepts Time Discussed: 16:47 Consult Disposition: Will see in ED Departure - Departure Date of Disposition Decision: 02/28/19 Time of Disposition Decision: 16:48 DIAGNOSIS: CHF exacerbation, Elevated brain natriuretic peptide (BNP) level, Elevated TSH, Chest pain, Lower extremity edema Disposition: ADMITTED INPATIENT 09 Certified Medical Emergency: Emergent Condition: Stable Referrals and Follow-Ups: None,PCP [Primary Care Provider] - - Critical Care Note This patient required my direct & personal management of CC.: No Attestation - Physician/ LO Attestation The physician spent face to face time with patient:: Yes Advanced Practice Provider documentation review:: Supervising physician onsite and consulted in the evaluation and care of this patient. The physician did have a face to face encounter with the patient.
--- NOTE | 2019-02-28 15:12 | Diag Imaging Result Doc PS360 ---
EXAM: CHEST-1 VIEW INDICATION: CP TECHNIQUE: One view COMPARISON: 11/11/2018 FINDINGS: The central vasculature is prominent suggesting pulmonary venous congestion. It is fairly similar to the previous study. The lungs are grossly clear, otherwise. There is no discrete pleural fluid collection or pneumothorax. There is stable cardiomegaly. The pacemaker is in stable position. IMPRESSION: Cardiomegaly and pulmonary venous congestion as described. Electronically signed by Mati Ware 02/28/2019 3:10 PM
[2019-02-28 15:24] LABS: BASO# 0.04 X1000 (0.0-0.2); BASO% 0.8 % (0.0-0.8); EOS# 0.14 X1000 (0.0-0.7); EOS% 2.8 % (0.0-10.0); HEMATOCRIT 40.4 % (37.0-47.0); HEMOGLOBIN 13.8 g/dL (12.0-16.0); LYMPH# 1.45 X1000 (1.2-3.4); LYMPH% 28.7 % (20.5-51.1); MCH 31.7 PG (27-31); MCHC 34.2 g/dL (33-37); MCV 92.9 FL (81-99); MONO# 0.52 X1000 (0.11-0.59); MONO% 10.3 % (1.7-9.3); MPV 10.2 FL (7.4-10.4); NEUT# 2.91 X1000 (1.4-6.5); NEUT% 57.4 % (42.2-75.2); PLT 263 X1000 (130-400); RBC 4.35 XMIL (4.2-5.4); RDW 13.8 % (11.5-14.5); WBC 5.06 X1000 (4.8-10.8)
[2019-02-28 15:28] LABS: URINE SOURCE CLEAN CATCH
[2019-02-28 15:31] LABS: INR 3.23
[2019-02-28 15:32] LABS: PTT 50.8 Seconds (22.3-41.8)
[2019-02-28 15:33] LABS: UR EPITHELIAL CELLS <10 /HPF (<10); URINE BACTERIA 1+ /HPF; URINE RBC <10 /HPF (<10); URINE WBC <10 /HPF (<10)
[2019-02-28 15:34] LABS: BILIRUBIN URINE NEGATIVE (NEGATIVE); BLOOD URINE NEGATIVE (NEGATIVE); COLOR STRAW; GLUCOSE URINE NEGATIVE (NEGATIVE); KETONE URINE NEGATIVE (NEGATIVE); LEUKOCYTES URINE NEGATIVE (NEGATIVE); NITRITE URINE NEGATIVE (NEGATIVE); PROTEIN URINE NEGATIVE (NEGATIVE); SP GRAVITY URINE 1.006; TURBIDITY URINE CLEAR (CLEAR); UROBILINOGEN URINE NORMAL (NORMAL)
[2019-02-28] MEDS ORDERED: LASIX IV ONE (15:36)
[2019-02-28] MEDS ORDERED: ASPIRIN PO ONE (15:37)
[2019-02-28 15:45] LABS: ALB/GLOB RATIO 1.5; ALBUMIN 4.7 g/dL (3.5-5.0); CALCIUM 10.1 mg/dL (8.8-10.2); CREATININE 1.1 mg/dL (0.5-0.9); POTASSIUM 3.6 mmol/L (3.5-5.1); TOTAL BILIRUBIN 0.89 mg/dL (0.20-1.00); TOTAL PROTEIN 7.8 g/dL (6.3-8.3)
[2019-02-28] MEDS ORDERED: KLOR-CON PO ONE (16:25)
--- NOTE | 2019-02-28 17:47 | HISTORY AND PHYSICAL ---
HISTORY OF PRESENT ILLNESS: This is an 83-year-old who I think Dr. Taiwo Henderson was her physician but at this time she has a physician at [facility]. She had moved from [place]. Stated that she had a bout of emesis. Did not really describe much nausea before that and after she threw up, she had some pain, mainly up in the left upper chest and around her jaw, in her neck area. It was short-lived and has no pain at the present time. Denies any fever or chills or pleuritic pain or cough or head, neck, chest injury or trauma. She was here back in October of this year after having some dizziness, progressively got worse. She has a history of congestive heart failure, hypertension, atrial fib, gastroesophageal reflux disease. Workup in the emergency room at that time showed some cardiomegaly and a little left effusion. ProBNP was 4,405. PAST MEDICAL HISTORY: 1. History of congestive heart failure. 2. Hypertension. 3. Atrial fibrillation. 4. Gastroesophageal reflux disease. PAST SURGICAL HISTORY: She has had a pacemaker. I understand she had surgery for mitral stenosis and then later she had the valve replaced and she has a valve ring around the tricuspid valve. I do not believe she has any history of coronary artery disease. She does have a pacemaker, history of cholecystectomy, appendectomy. I believe she has had her tonsils removed. FAMILY HISTORY: She apparently has a history of cancer and heart disease. SOCIAL HISTORY: Lives with her family. Negative for tobacco, alcohol, or illicit drugs. ALLERGIES: Lincomycin, penicillin, sulfa drugs. She says she is allergic to 8 different medicines. REVIEW OF SYSTEMS: She did not report any weight gain or loss. No change in appetite.HEENT: No change in visual or hearing acuity. No lymphadenopathy or neck pain or upper respiratory tract symptoms, such as postnasal drip or sinus congestion. Respiratory: No increased work of breathing or dyspnea. Cardiovascular: She did not really describe any true pressure or squeezing chest pain, but did have left upper chest discomfort in the left side of her neck. GI: No change in bowels or urination problems. Endocrinologic/Hematologic: No significant history. Musculoskeletal/Neurologic: No focal or new complaints. PHYSICAL EXAMINATION: VITAL SIGNS: In the emergency room temp 97.7 degrees, pulse 68, respirations 16, blood pressure 184/74, O2 saturation 97%. Height 5 feet 4 inches. Weight 97 pounds. HEENT: Pupils are equal and round. Oral and nasal mucosa without any lesions. Conjunctiva is pink. Sclera is clear. NECK: CVP less than 6 cm from the left atrium. Neck is supple. No adenopathy. LUNGS: Clear in all lung [place]. CARDIOVASCULAR: Regular rhythm and rate without murmur or S3. I can hear the valve closing, the mitral valve. Her carotid, radial, femoral pulses 2+ and symmetrical. ABDOMEN: Soft. Positive bowel sounds. EXTREMITIES: No pedal edema. SKIN: Without rashes. LAB: White count 5,060, hematocrit 40, platelet count 263,000. Sodium 142, potassium 3.6, chloride 98, BUN 8, creatinine 1.1, glucose 100, AST 25, ALT 9. ProBNP 6,154. ProTime is 34, PTT is 50. Urinalysis was unremarkable. Chest x-ray: Cardiomegaly, some pulmonary venous congestion described. In looking back, she had an echocardiogram with Doppler in October of this year. Aortic valve leaflets trileaflet. Pulmonary valve was normal. Pacing leads were noted in the right chamber. Normal left ventricular cavity size. Ejection fraction estimated 40 to 45%. Mechanical prosthetic valve in the mitral position stable. Mitral valve area by pressure half time was 4 square centimeters. Her pulmonary arterial systolic pressure was 55 mmHg. ASSESSMENT AND PLAN: 1. Atypical chest pain. Does not sound like it is coronary, but I think we will check another set of enzymes, EKG, admit her to observation. 2. She has a history of mitral valve replacement. Previous echo shows that she has adequate systolic function. There was a suggestion of maybe some pulmonary venous hypertension on chest x-ray, but she is breathing comfortably and no trouble with air or gas exchange at this point. Her renal function looks good. Creatinine is 1.1, which I am sure represent some mild chronic kidney disease, so we will keep her on her current medications. She gets Lasix 20 mg p.o. p.r.n. She received some in the emergency room, 40 mg, and she gets meclizine t.i.d. as needed. Melatonin she takes at night, a combination melatonin and pyridoxine. Remeron 7.5 mg at bedtime and Zantac she takes 1 tablet daily, warfarin 2 mg at bedtime. Her ProTime was 34, so that appears to be appropriate. We will check another ProTime in the morning. We will check T4, TSH, and we will check B12 and folate. We will get another set of troponin and CK in the morning and if everything is clear, I plan to let her go home. cc: José Parnell MD
--- NOTE | 2019-02-28 17:50 | EKG Report ---
Test Performed on : 02/28/2019 2:05:33 PM Test Reason : CP Blood Pressure : / mmHG Vent. Rate : 069 BPM Atrial Rate : 069 BPM P-R Int : 000 ms QRS Dur : 182 ms QT Int : 504 ms P-R-T Axes : 000 -49 122 degrees QTc Int : 540 ms Ventricular-paced rhythm with frequent premature ventricular complexes. Abnormal ECG When compared with ECG of 08-NOV-2018 10:58, premature ventricular complexes. are now present Vent. rate has increased BY 5 BPM Unconfirmed Result
[2019-02-28] MEDS ORDERED: TYLENOL PO PRN (17:57)
[2019-02-28] MEDS ORDERED: ZOFRAN IV PRN (17:57)
[2019-02-28] MEDS ORDERED: ANTIVERT PO PRN (17:57)
[2019-02-28] MEDS ORDERED: LASIX PO PRN (17:57)
[2019-02-28] MEDS ORDERED: COUMADIN PO SCH ×2 (19:00→21:00)
[2019-02-28] MEDS ORDERED: MELATONIN PO SCH (21:00)
[2019-02-28] MEDS ORDERED: REMERON PO SCH (21:00)
[2019-02-28] MEDS ORDERED: ZANTAC PO SCH (21:00)
[2019-03-01] MEDS ORDERED: PRILOSEC PO SCH (07:00)
[2019-03-01 07:24] VITALS: BP 121/38
--- NOTE | 2019-03-01 10:17 | DISCHARGE SUMMARY ---
ADMISSION DATE: 02/28/2019 DISCHARGE DATE: 03/01/2019 HISTORY AND HOSPITAL COURSE: This is an 83-year-old. She is followed at the [facility]. She had moved from [place]. She had a bout of emesis today, and then following that, she complained of some chest pain in the left upper chest. This resolved in a short time. She has a history of congestive heart failure, hypertension, atrial fibrillation, gastroesophageal reflux disease. Note on her lab, white count, hematocrit, hemoglobin, and platelet count are all normal. Electrolytes were unremarkable. TSH was mildly high at 8, and T4 was 0.9. Troponins were negative. EKG unremarkable. The patient felt good through the night, and wanted to go home. She does have underlying dementia, but very mild. She is very pleasant and very cooperative. When we checked her ProTime, she is on Coumadin, it was 34. She has a mechanical mitral valve. DISCHARGE MEDICATIONS: I am going to let her continue her current medications of Lasix 20 mg p.o. p.r.n., meclizine 1 tablet t.i.d., melatonin 1 tablet at bedtime, Remeron half a tablet I think 7.5 mg at bedtime, ranitidine 1 tablet at bedtime, and her warfarin 2 mg daily. cc: José Parnell MD
[2019-03-06] MEDS ORDERED: COUMADIN PO SCH ×2 (19:00→21:00)
== END 2019-03-01 13:06 | disposition home or self-care (01) ==
LOC: SUPCPDRO → ED 13:59 → 3N 13:59
PROVIDERS: ATTEND Emergency Medicine